=== PATIENT | male | born 1995 | race Caucasian/White ===

== ENCOUNTER → 2017-08-20 | Outpatient (CLI) | payer BC ==
[2017-08-20 18:08] LABS: ALT/SGPT 26 U/L (12-78); BLOOD UREA NITROGEN 17 mg/dl (7-18); BUN/CREATININE RATIO 13.8 (10-20); CALCIUM 8.8 mg/dl (8.5-10.1); CARBON DIOXIDE 28 mmol/L (21-32); CHLORIDE 107 mmol/L (98-107); GLUCOSE 84 mg/dl (70-99); POTASSIUM 3.8 mmol/L (3.5-5.1); SODIUM 142 mmol/L (136-145)
[2017-08-20 18:11] LABS: ALB/GLOB RATIO 1.4 (0.9-2); ALKALINE PHOSPHATASE 77 U/L (45-117); AST/SGOT 17 U/L (15-37)
--- NOTE | 2017-08-20 18:43 | DIAGNOSTIC IMAGING REPORT ---
CHEST 2 VIEWS ROUTINE CLINICAL HISTORY: 22 years-old Male presenting with EPIGASTRIC PAIN. TECHNIQUE: PA and lateral views of the chest were obtained. COMPARISON: None. FINDINGS: Cardiomediastinal silhouette normal. Lungs and pleural spaces clear. Osseous structures normal. Gaseous distention of large bowel beneath the left hemidiaphragm. IMPRESSION: 1. No acute cardiopulmonary disease. Electronically signed by: Zachary Gold M.D. 08/20/2017 6:41 PM Dictated Date/Time: 08/20/2017 6:40 PM
== END | disposition home or self-care (01) ==
LOC: C.RAD 17:03
PROVIDERS: ATTEND Physician Assistant
DX: R14.0 Abdominal distension (gaseous) (principal); R10.13 Epigastric pain; R06.02 Shortness of breath

== ENCOUNTER → 2017-08-21 | Outpatient (CLI) | payer BC ==
--- NOTE | 2017-08-21 10:49 | DIAGNOSTIC IMAGING REPORT ---
BILIARY ULTRASOUND CLINICAL HISTORY: EPIGASTRIC PAIN,ABD DISTENTION COMPARISON STUDY: No previous studies for comparison. FINDINGS: The pancreas appears sonographically normal. The gallbladder appears sonographically normal. The liver appears sonographically normal. There is no ductal dilatation. The common bile duct measures 2 mm. There is no right-sided hydronephrosis. IMPRESSION: Normal biliary ultrasound. Electronically signed by: Sushant Hyman M.D. 08/21/2017 10:48 AM Dictated Date/Time: 08/21/2017 10:46 AM
== END | disposition home or self-care (01) ==
LOC: C.ULTR 10:23
PROVIDERS: ATTEND Physician Assistant
DX: R10.13 Epigastric pain (principal); R14.0 Abdominal distension (gaseous)